=== PATIENT | male | born 1955 | race Native Hawaiian/Other Pacific Islander ===

== ENCOUNTER 2017-11-09 15:58 | Outpatient (CLI) | payer OTHER | END 2017-11-09 21:47 | disposition home or self-care (01) | LOC: RESP 15:58 | DX: G56.03 Carpal tunnel syndrome, bilateral upper limbs (principal) | CPT/HCPCS: 95885; 95911 ==

== ENCOUNTER 2022-05-26 09:48 | Outpatient (CLI) | payer OTHER | END 2022-05-26 19:24 | disposition home or self-care (01) | LOC: CT 09:48 | PROVIDERS: ATTEND Internal Medicine | DX: R06.09 Other forms of dyspnea (principal); F17.210 Nicotine dependence, cigarettes, uncomplicated ==